=== PATIENT | female | born 1945 | race Caucasian/White ===

== ENCOUNTER → 2019-04-13 16:56 | Outpatient (BNVA) | payer MEDICARE, SELFPAY | PROVIDERS: Family Provider Family Medicine; PCP Family Medicine; Visit Provider Family Medicine | DX: M25.559 Pain in unspecified hip (principal); G89.29 Other chronic pain | CPT/HCPCS: 73502 ==

== ENCOUNTER → 2019-09-10 14:57 | Outpatient (BNVA) | payer MEDICARE, SELFPAY | PROVIDERS: Family Provider Family Medicine; PCP Family Medicine; Visit Provider Nurse Practitioner | DX: N39.0 Urinary tract infection, site not specified (principal) | CPT/HCPCS: 81000 ==

== ENCOUNTER → 2019-09-12 12:00 | Outpatient (BNVA) | payer MEDICARE, SELFPAY | PROVIDERS: Family Provider Family Medicine; PCP Family Medicine; Visit Provider Family Medicine | DX: H83.09 Labyrinthitis, unspecified ear (principal); R11.2 Nausea with vomiting, unspecified | CPT/HCPCS: 80053; 85025 ==

== ENCOUNTER → 2022-04-02 13:36 | Outpatient (BNVA) | payer MEDICARE, SELFPAY | PROVIDERS: Family Provider Family Medicine; Visit Provider Family Medicine | DX: E03.9 Hypothyroidism, unspecified (principal); F32.9 Major depressive disorder, single episode, unspecified; Z76.89 Persons encountering health services in other specified circumstances | CPT/HCPCS: 80053; 80061; 84439; 84443; 85025 ==

== ENCOUNTER → 2022-11-16 07:50 | Outpatient (BNVA) | payer MEDICARE, SELFPAY | PROVIDERS: Family Provider Family Medicine; PCP Family Medicine; Visit Provider Otolaryngology | DX: H91.93 Unspecified hearing loss, bilateral (principal); H93.13 Tinnitus, bilateral | CPT/HCPCS: 99202; 99203 ==

== ENCOUNTER → 2023-04-20 09:29 | Outpatient (BNVA) | payer MEDICARE, SELFPAY | PROVIDERS: Family Provider Family Medicine; PCP Family Medicine; Visit Provider Family Medicine | DX: E03.9 Hypothyroidism, unspecified (principal); M25.559 Pain in unspecified hip; G89.29 Other chronic pain; M16.12 Unilateral primary osteoarthritis, left hip; E55.9 Vitamin D deficiency, unspecified; R52 Pain, unspecified | CPT/HCPCS: 80053; 80061; 82306; 84439; 84443; 85025 ==

== ENCOUNTER 2023-04-22 09:11 | Outpatient (CLI) | payer MEDICARE, SELFPAY ==
--- NOTE | 2023-04-22 09:16 | XR_ITS ---
WS: [id number] XR lumbar spine 1V [id number] REASON FOR EXAM: Pain FINDINGS: Single AP view of the lumbar spine. 5 lumbar vertebrae. Mild rotatory scoliosis convex left. Significant multilevel degenerative spondylosis with disc space narrowing and osteophytosis. Significant degenerative arthropathy in the facet joints L4-S1. Previous laminectomies at L5-S1. IMPRESSION: Postsurgical lumbar spine. Multilevel degenerative spondylosis.
--- NOTE | 2023-04-22 09:16 | XR_ITS ---
WS: [id number] XR hip RT 2-3V wo/w pel* [id number] REASON FOR EXAM: Right hip pain FINDINGS: No fracture or focal bone lesion. Severe joint space narrowing with [id number]. Severe subchondral sclerosis, cystic change, and oste ophytosis of the acetabulum and femoral head. No soft tissue abnormality. IMPRESSION: Severe osteoarthritis of the right hip joint.
== END 2023-04-22 09:12 | disposition home or self-care (01) ==
LOC: RAD 09:13
PROVIDERS: Family Provider Family Medicine; PCP Family Medicine; Visit Provider Family Medicine
DX: M16.0 Bilateral primary osteoarthritis of hip (principal); G89.29 Other chronic pain; M47.817 Spondylosis without myelopathy or radiculopathy, lumbosacral region
CPT/HCPCS: 72020; 73502

== ENCOUNTER → 2023-09-20 08:38 | Outpatient (BNVA) | payer MEDICARE, SELFPAY | PROVIDERS: Family Provider Family Medicine; PCP Family Medicine; Referring Provider Family Medicine; Visit Provider Specialist | DX: M87.151 Osteonecrosis due to drugs, right femur; M16.7 Other unilateral secondary osteoarthritis of hip | CPT/HCPCS: 73502; 99204 ==

== ENCOUNTER 2023-10-05 07:35 | Outpatient (CLI) | payer MEDICARE, SELFPAY ==
--- NOTE | 2023-10-05 08:00 | CT_ITS ---
WS: [id number] NONCONTRAST CT RIGHT HIP TECHNIQUE: Noncontrast CT RIGHT hip with coronal and sagittal reformatted images. CLINICAL INFORMATION: right hip pain COMPARISON: None. DLP: 261.[address] scans at [facility] use at least one of these dose optimization techniques: automated e xposure control; mA and/or kV adjustment per patient size (includes targeted exams where dose is matc hed to clinical indication); or iterative reconstruction. FINDINGS: Osteopenia. Advanced degenerative arthritis RIGHT hip with dyep-ce-gcyz articulation and subchondral cystic change involving the acetabulum and femoral head. This is worse involving the superior lateral femoral head with large areas of subchondral cystic change. Hypertrophic spurring of the acetabulum. Sclerosis in the femoral head. No significant subchondral collapse. Arthritis is significantly progr essed since 2019. Advanced degenerative arthritis of the pubic symphysis. Degenerative arthritis RIGHT SI joint. Vascul ar calcification. Small joint effusion. CT/CT hip RT wo con* [id number] IMPRESSION: 1. Advanced degenerative arthritis RIGHT hip with subchondral cystic change an d sclerosis involving the underlying acetabulum and femoral head. Advanced subc hondral cystic changes with gdpw-dc-ccnl articulation. 2. Osteopenia. 3. No acute fractures. 4. No other acute findings.
== END 2023-10-05 07:36 | disposition home or self-care (01) ==
LOC: RAD 07:36
PROVIDERS: Family Provider Family Medicine; PCP Family Medicine; Visit Provider Specialist
DX: M25.551 Pain in right hip (principal); M16.11 Unilateral primary osteoarthritis, right hip; M85.88 Other specified disorders of bone density and structure, other site
CPT/HCPCS: 73700

== ENCOUNTER → 2023-10-20 07:42 | Outpatient (BNVA) | payer MEDICARE, SELFPAY | PROVIDERS: Family Provider Family Medicine; PCP Family Medicine; Visit Provider Surgery | DX: R19.09 Other intra-abdominal and pelvic swelling, mass and lump (principal) | CPT/HCPCS: 99203; 99214 ==

== ENCOUNTER → 2023-11-03 09:23 | Outpatient (BNVA) | payer MEDICARE, SELFPAY | PROVIDERS: Family Provider Family Medicine; PCP Family Medicine; Visit Provider Specialist | DX: M16.11 Unilateral primary osteoarthritis, right hip (principal); M87.9 Osteonecrosis, unspecified | CPT/HCPCS: 36415; 80053; 81003; 81015; 85025; 99214 ==

== ENCOUNTER → 2023-11-30 09:12 | Outpatient (BNVA) | payer MEDICARE, SELFPAY | PROVIDERS: Family Provider Family Medicine; PCP Family Medicine; Visit Provider Family Medicine | DX: Z01.818 Encounter for other preprocedural examination (principal); I49.8 Other specified cardiac arrhythmias | CPT/HCPCS: 80048; 81003; 85025; 93005 ==

== ENCOUNTER 2023-12-14 15:56 | Observation (INO) | payer MEDICARE, SELFPAY ==
[2023-12-14] VITALS (21 sets, daily range): BP systolic 116–151; BP diastolic 73–117; PULSE 77–106; RESP 12–32; TEMP 36.1–37; O2SAT 94–100; BMI 22.6
--- NOTE | 2023-12-14 12:20 | P.HPUD_ITS ---
Surgery/Procedure H&P Update DATE OF PROCEDURE: December 14, 2023 DATE H&P PERFORMED: 11/30/23 H&P UPDATE INFORMATION: I have reviewed H&P completed within last 30 days, I have examined patient prior to procedure, No changes to prior documentation and H&P is in [facility] EMR on date indicated PRIMARY INDICATION FOR PROCEDURE: Primary osteoarthritis right hip PLANNED PROCEDURE: Operation Date: 12/14/23 13:40 Proposed Procedures p Total Hip Arthroplasty(Right) - Jazz Griffin MD Related Problem List Diagnoses (1) Arthritis of right hip: (2) Osteonecrosis of right hip:
[2023-12-14] MEDS: acetaminophen 1,000 MG/100 ML PIGGYBACK 400 MG IV ×2 (12:35→20:48)
[2023-12-14] MEDS: CELEcoxib 200 mg Capsule 400 MG PO (12:36)
[2023-12-14] MEDS: gabapentin 300 mg Capsule PO (12:37)
[2023-12-14] MEDS: sodium chloride 0.9% 1,000 ML 30 ML IV (12:54)
--- NOTE | 2023-12-14 13:30 | ANES.PREANE2 ---
Pre-Anesthetic Assessment Height/Weight: Height 5 ft 4 in Weight 132 lb Temp Pulse Resp BP Pulse Ox O2 Del Method 98.0 F 89 16 123/81 94 Room Air 12/14/23 12:22 12/14/23 12:22 12/14/23 12:22 12/14/23 12:22 12/14/23 12:22 12/14/23 12:51 Preop Diagnosis: Arthritis Operation Date: 12/14/23 13:40 Proposed Procedures p Total Hip Arthroplasty(Right) - Jazz Griffin MD Was Beta Perez taken within 24 hours: N/A Was Clonidine taken within 24 hours: N/A Last intake: Intake Last Liquid Date 12/13/23 Last Liquid Time 22:00 Last Solid Date 12/13/23 Last Solid Time 22:00 Social No alcohol and No tobacco Exam alert, oriented x 3, clear to auscultation bilaterally and regular rate & rhythm Airway Submandibular: within normal limits Cervical ROM: within normal limits Mallampati: Class II Dentition: partials, full and other (Few missing teeth) Anesthetic Plan ASA status: 2 Anesthesia: General Other: No prior issues with anesthesia NPO since midnight Hypothyroidism on Synthroid Scoliosis noted Denies any pulmonary or cardiac issues Labs reviewed 11/30/2023 and acceptable for surgery METs greater than 4 Plan for general anesthesia Medications/Allergies Home Medications Medication Instructions Recorded Confirmed Last Taken Type latanoprost 0.005 % eye drops 1 drop ophthalmic (eye) QDAY 04/13/19 12/13/23 12/13/23 History levothyroxine 75 mcg tablet See Rx Instructions .Route 10/08/23 12/13/23 12/14/23 Rx .COMPLEX #30 tabs tramadol 100 mg tablet 100 mg PO BID PRN pain #80 tabs 11/03/23 12/13/23 12/13/23 Rx trazodone 50 mg tablet See Rx Instructions .Route 11/03/23 12/13/23 Unknown Rx .COMPLEX #30 tabs fluoxetine 40 mg capsule (Prozac) 40 mg PO DAILY #90 caps 12/01/23 12/13/23 12/14/23 Rx Allergies Allergy/AdvReac Type Severity Reaction Status Date / Time No Known Allergies Allergy Verified 12/13/23 11:54 Current Medications Generic Name Dose Route Start Last Admin Trade Name Freq PRN Reason Stop Dose Admin Sodium Chloride 1,000 mls @ 30 mls/hr 12/14/23 12:15 12/14/23 12:54 Sodium Chloride 0.9% IV 12/15/23 12:14 30 mls/hr .Q24H [place] Administration PFSH Anesthesia Medical History Hypothyroidism (acquired) Surgical History History of foot surgery History of hysterectomy History of appendectomy Family History Father Cancer bone cancer and melanoma Brother Cancer pancreatic Social History Smoking and tobacco/nicotine status: never used tobacco/nicotine Alcohol intake: never Female Reproductive History Spontaneous abortions: No Data Anesthesia Cardiac Studies: No Data to Display
[2023-12-14] MEDS: ceFAZolin 2,000 mg SDV 2000 MG IVP ×2 (13:35→20:39)
[2023-12-14] MEDS: tranexamic acid 1,000 mg/10mL SDV 1000 MG IV (13:56)
[2023-12-14] MEDS: vancomycin 1,000 MG SDV 1000 MG XX (14:27)
[2023-12-14] MEDS: ceFAZolin 1,000 mg SDV 1000 MG IRRIGATION (14:27)
--- NOTE | 2023-12-14 16:24 | P.OP_ITS ---
Operative Report Date of procedure: December 14, 2023 Pre-op diagnosis: Primary osteoarthritis right hip with osteonecrosis Post-op diagnosis: Primary osteoarthritis right hip with osteonecrosis Post-op findings: Femoral head collapse with osteonecrosis and severe degenerative osteoarthritis. Procedure done: Right total hip arthroplasty Implants: The [place] hip system utilizing the Insignia hip stem standard offset size 6, with a size 54 mm by E alpha code Trident TriTanium solid back acetabular shell, a 42 mm E MDM cementless liner, and a Biolox delta ceramic V40 femoral head size 28 mm outer diameter with +0 mm neck length Specimens removed/disposition: Femoral head, disposed of Pathology: None Surgeon: Jazz Griffin MD Structural Analysis Engineer: Nu Zepeda Structural Analysis Engineer: Whose services were required for positioning, retraction, closure, and overall completion of the surgical procedure Anesthesia: General (Per ET tube, ASA 2) Estimated blood loss (mL): 150 IV fluids (mL): 1,300 Urine output (mL): 250 Complications: None Findings: Severe degenerative osteoarthritis and femoral head collapse with cystic changes within the acetabulum Condition: stable Disposition: PACU (Then to floor for postoperative rehabilitation and pain management) Brief History: This 78-year-old woman presented to the clinic complaining of severe right hip pain. X-rays demonstrated findings consistent with avascular necrosis. The patient had severe limitations in activities of daily living as well as range of motion which was very very limited. After discussion with the patient, she w ished to proceed with operative intervention in the form of total hip arthroplasty. She did have preoperative consultation with Dr. Ashton secondary to an abdominal wall issue remotely. She was cleared for surgical intervention and evaluated preoperatively by Dr. Gonsales as well. While in clinic, questions were answered and consents were signed. She was seen again preoperatively. Procedure: Patient was brought to the operating theater. She was transferred to the operating room table and subsequently administered a general anesthetic i ntubated, ASA 2. Following administration of adequate anesthesia, the patient was placed in full lateral position and held in position with a pegboard. Also, the patient had minimal movement in her right lower extremity preoperatively. The patient's right lower extremity was then prepped and draped in usual fashion utilizing DuraPrep. It was draped free. Following prepping and draping a surgi simran pause was performed. At the time of surgical pause, we identified the site and side of surgery. We also identified the patient and preoperative surgical markings. Confirmation was made of equipment availability. Additionally, the patient's preoperative IV antibiotic, Ancef 2 g, was confirmed as being given in a timely fashion and being the appropriate antibiotic. Following the surgical pause, an incision was made centering over the patient's greater trochanter continuing proximally and distally as necessary to allow access to the hip joint. Dissection continued through skin and soft tissues using a scalpel, and hemostasis was obtained using electrocautery. The tensor fascia tanvir was identified and incised longitudinally. Sciatic nerve was identified and protected throughout the surgical procedure. A Charnley U retractor was placed after the tensor fascia tanvir had been incised longitudinally, and the sciatic nerve had been identified. The hip was internally rotated, and the piriformis muscle was identified and tagged. Piriformis muscle along with the remaining short external rotators were then incised from the posterior aspect of the hip joint. These were retracted po steriorly. The capsule was entered in a T-type fashion with the edges being tagged, and subsequently the hip was dislocated. Following hip dislocation, a femoral neck osteotomy was accomplished in the appropriate position. We then evaluated the acetabulum. The femur was retracted anteriorly. Soft tissues were retracted and the labrum was removed. We then began reaming. Once the femoral head was removed, there was no evidence of infection, but there was significant loss of cartilage over the head and over the acetabulum with femoral head collapse. We reamed the acetabulum to a size 53 to allow for a size 54 mm TriTanium solid back acetabular shell component. The acetabulum was impacted into position. The shell was impacted into position. Subsequently, the MDM liner, cementless was impacted into place. This was a size 42 mm with the alpha code to match the size 54 TriTanium shell. Once this was impacted into position, edges were checked to ensure there was no soft tissue impingement. The area was irrigated and attention was directed to the proximal femur. The proximal femur was lifted out of the wound. A canal finder was passed after the box chisel. The reamer was used to lateralize. We then began broaching. We broached sequentially and had excellent fit and fill with the size 6 standard offset Insignia hip stem. A trial reduction was accomplished with a +0 mm femoral head inside a trial MDM insert size 28 mm inner diameter by 42E. Leg lengths were evaluated and felt to be restored. The patient was stable to external rotation, toe hang, and at 90 degrees of flexion with 80 degrees of internal rotation and 30 degrees of adduction. The stability was felt to be excellent. Therefore, trial components were removed after the hip was dislocated. The size 6 Insignia hip stem, [place], with standard offset was impacted into position. Once this was in place, the MDM liner size 42 mm by E alpha code was assembled with the 28 mm +0 mm Biolox femoral head. This was then placed onto the hip stem and impacted into position. Hip was reduced. Again the hip was placed through range of motion and the above stabilities were obtained. The wound was copiously irrigated with 20 mL of Betadine and 500 mL of normal saline mixed together. Subsequently, we suctioned this out and irrigated the wound copiously with lactated Ringer's. Being satisfied with the prosthesis, attention was directed to closure. Closure was accomplished with 0 Vicryl in the capsular tissues. Piriformis was reattached with 0 Vicryl as well. Tensor fascia tanvir was closed with 0 Vicryl in an interrupted fashion. The subcutaneous tissues were closed with a combination of 0 Vicryl and 2-0 STRATAFIX in a running fashion. Vancomycin powder and a Gelfoam thrombin mixture was placed into the wound as well. The skin was closed with a running 3-0 STRATAFIX followed by Dermabond Prineo and OpSite. The patient was placed in an abduction pillow. She was returned the Recovery Room in a satisfactory condition and will be discharged to the floor for postoperative rehabilitation and pain management. There were no complications. Related Problem List Diagnoses (1) Arthritis of right hip: (2) Osteonecrosis of right hip:
[2023-12-14] MEDS: fentaNYL 50 mcg/mL INJ 2mL IVP ×2 (16:30→16:53)
--- NOTE | 2023-12-14 16:36 | XRR_ITS ---
PROCEDURE INFORMATION: Exam: XR Pelvis Exam date and time: 12/14/2023 4:46 PM Age: 78 years old Clinical indication: Device placement; Other: Status post right total hip arthroplasty; Prior surgery; Surgery date: Post-operative (0-2 days); Additional info: Status post right total hip arthroplasty, low ap pelvis TECHNIQUE: Imaging protocol: Radiologic exam of the pelvis. Views: 1 or 2 view. COMPARISON: CR XR hip RT 2-3V wo/w pel* [id number] 09/20/2023 8:40 AM FINDINGS: Tubes, catheters and devices: Surgical clips overlie the pelvis bilaterally. Bones/joints: Interval total right hip arthroplasty. Hardware appears intact without complication. Similar mild degenerative changes of the left hip. No definite fracture visualized. Soft tissues: Unremarkable. XR/XR pelvis 1-2V* [id number] IMPRESSION: Right total hip arthroplasty without apparent complication.
[2023-12-14] MEDS: meperidine 50 mg/mL INJ 12.5 MG IVP (17:00)
--- NOTE | 2023-12-14 17:06 | PC.NURSE ---
1706 - noted time in phase 1 vital signs that blood pressure was not taking - anesthesia at pts side during entirity of this event - pt shivering - anesthesia assessed pt - no change in condition - proceed with post op anesthesia orderes - Dr Griffin in PACU as well
[2023-12-14] MEDS: calcium carbonate 500 mg Chew Tablet 1000 MG PO (17:56)
[2023-12-14] MEDS: sennosides-docusate Tablet 2 TAB PO (17:56)
[2023-12-14] MEDS: iron polysaccharide complex 150 mg Capsule PO (17:56)
[2023-12-14] MEDS: oxyCODONE 5 mg IR Tab/Cap PO ×2 (17:57→23:43)
[2023-12-14] MEDS: mupirocin oint 22 gm 1 APPLIC NASAL (17:57)
[2023-12-14] MEDS: chlorhexidine gluconate 0.12% Btl 473 mL 30 ML MUCOUS MEM ×2 (17:57→20:39)
[2023-12-15 00:32] VITALS: BP 113/80; PULSE 81; RESP 17; TEMP 36.8; O2SAT 97
[2023-12-15] MEDS: acetaminophen 1,000 MG/100 ML PIGGYBACK 400 MG IV ×2 (04:19→11:08)
[2023-12-15] MEDS: ceFAZolin 2,000 mg SDV 2000 MG IVP ×2 (04:47→12:31)
[2023-12-15] MEDS: levothyroxine 75 mcg Tablet PO (05:33)
[2023-12-15 06:25] LABS: Basophils % 0.1 %; Hematocrit 34.4 % (36-47); Lymphocytes # 0.8 10^3/uL (0.8-4.8); Lymphocytes % 5.7 %; Mean Corpuscular HGB Conc 32.3 g/dL (30-55); Mean Corpuscular Volume 96.1 fl (85-98); Mean Platelet Volume 9.6 fL (7.4-10.4); Monocytes % 6.5 %; Neutrophils % 87.2 %; Nucleated Red Blood Cells % 0 %; Platelet Count 239 10^3/cmm (157-399); Red Blood Count 3.58 10^6/uL (3.85-5.65); Red Cell Distribution Width 13.9 % (12.1-15.1); White Blood Count 14.58 10^3/uL (3.29-11.43)
[2023-12-15 06:43] VITALS: RESP 20
[2023-12-15] MEDS: oxyCODONE 5 mg IR Tab/Cap PO ×2 (06:43→10:48)
[2023-12-15 06:45] LABS: Anion Gap 13.2 (5-19); Blood Urea Nitrogen 11 mg/dL (8-23); Calcium 8.3 mg/dL (8.5-10.5); Carbon Dioxide 26 mmol/L (22-29); Chloride 103 mmol/L (98-107); Glucose 122 mg/dL (65-115); Osmolality Calculated 287 mOsm/kg (285-295); Potassium 4.2 mmol/L (3.5-5.1); Sodium 138 mmol/L (136-145)
[2023-12-15] MEDS: cholecalciferol (vitamin D3) 1,000 unit Tablet 1000 UNIT PO (07:29)
[2023-12-15] MEDS: multivitamin therapeutic Tablet 1 TAB PO (07:30)
[2023-12-15] MEDS: sennosides-docusate Tablet 2 TAB PO (07:30)
[2023-12-15] MEDS: CELEcoxib 200 mg Capsule PO (07:30)
[2023-12-15] MEDS: fluoxetine 20 mg Capsule 40 MG PO (07:30)
[2023-12-15] MEDS: aspirin 325 mg EC Tablet PO (07:30)
[2023-12-15] MEDS: calcium carbonate 500 mg Chew Tablet 1000 MG PO (07:30)
[2023-12-15] MEDS: iron polysaccharide complex 150 mg Capsule PO (07:31)
[2023-12-15] MEDS: chlorhexidine gluconate 0.12% Btl 473 mL 30 ML MUCOUS MEM (07:31)
[2023-12-15] MEDS: mupirocin oint 22 gm 1 APPLIC NASAL (07:32)
[2023-12-15 07:33] VITALS: BP 96/52; PULSE 76; RESP 18; TEMP 37.2; O2SAT 94
--- NOTE | 2023-12-15 09:26 | PC.CHAP ---
Pastoral Care Encounter/Spiritual Assessment Type of Contact [] Declined factory manager visit [] Patient/Family/Request visit [] Outpatient visit [] Follow-up visit [] Physician referral [] Code/Alert [x] Routine visit [] Staff referral [] Actively dying [] Patient sleeping [] Family support [] [] Out of room [] Palliative care [] [] Receiving care in room [] Pre-surgical visit [] Trauma [] Long length of stay [] ICU visit [] Other: Relational/Emotional Strength [x] Patient feels connected with others/family/visitors/staff [] Distress [] Loneliness/isolation [] Abandonment Spirituality of Patient [x] Person of Padma [] Attends Latter-Day of their Padma [x] Believes in Prayer [] Reads Bible or Jehovah'S Witness materials [] There are Spiritual issues to be addressed Director Of Trauma Interventions [x] Prayer [x] Active listening [] Non-anxious presence [x] Spiritual/emotional support [] Crisis/trauma care [] Spiritual counseling [] Bereavement support [] Provided bereavement packet [] Provided Bible/devotional materials [] Provided toy/stuffed animal, coloring book to patient or family member [] Provided Communion [] Anointing/[place] [] Salvation [x] Completed spiritual assessment [] Other: Impact on Illness or Injury [] Angry [] Fearful [] Anxious [] Often cries [] Exhaustion [] Unable to work [] Unable to attend episcopalian [] Unable to walk/stand [] Unable to read [] Unable to drive [] Unable to eat/drink [] Unable to sleep [] Unable to be with family [] Patient intubated [] Other: Summary Time spent with patient 5 min
[2023-12-15 10:48] VITALS: RESP 17
--- NOTE | 2023-12-15 11:01 | P.DS_ITS ---
Discharge Providers Date of Admission: 12/14/23 15:56 Date of Discharge: December 15, 2023 Attending Provider at Admission: Jazz Griffin MD Attending Provider at Discharge: Jazz Griffin MD Primary Care Provider: Avinash Lees DO Diagnoses at Discharge Discharge Diagnosis (1) Arthritis of right hip: Status: Acute (2) Osteonecrosis of right hip: Status: Acute (3) S/P total right hip arthroplasty: Status: Acute Permanent problem details: Date of procedure: December 14, 2023 Diagnosis: Primary osteoarthritis right hip with osteonecrosis Procedure done: Right total hip arthroplasty Implants: The [place] hip system utilizing the Insignia hip stem standard offset size 6, with a size 54 mm by E alpha code Trident TriTanium solid back acetabular shell, a 42 mm E MDM cementless liner, and a Biolox delta ceramic V40 femoral head size 28 mm outer diameter with +0 mm neck length Reason for Visit Reason for Visit: M87, M16.11 Brief History: This 78-year-old woman presented to the clinic complaining of severe right hip pain. X-rays demonstrated findings consistent with avascular necrosis. The patient had severe limitations in activities of daily living as well as range of motion which was very very limited. After discussion with the patient, she wished to proceed with operative intervention in the form of total hip arthroplasty. She did have preoperative consultation with Dr. Ashton secondary to an abdominal wall issue remotely. She was cleared for surgical intervention and evaluated preoperatively by Dr. Gonsales as well. While in clinic, questions were answered and consents were signed. She was seen again preoperatively. Hospital Course Hospital Course Patient was admitted following right total hip arthroplasty. She worked with physical therapy on the first postoperative day and did well. She was instructe d in posterior hip precautions. Dressing was dry. There was minimal to no swelling and no ecchymosis. The patient was felt safe for discharge to home. Discussion was undertaken with physical therapy. Therefore, the patient will be discharged home with no evidence of DVT or other complication. Physical Exam Const: COMMON NORMALS: no acute distress, average body habitus, patient oriented x3 and alert GENERAL APPEARANCE: cooperative and comfortable ORIENTATION/CONSCIOUSNESS: Yes awake HENMT: COMMON NORMALS: normocephalic and atraumatic HEAD & SCALP: n ormocephalic and atraumatic Eye: GENERAL EYE: appearance normal, both eyes and all related structures Chest: COMMONS NORMALS: normal inspection of the chest Resp: COMMON NORMALS: normal respiratory effort EFFORT & INSPECTION: Yes able to speak in complete sentences and Yes symmetric chest movement Extremity: RIGHT LOWER EXTREMITY: Yes hip joint (Dressing dry and intact) Right hip: Yes inspection (No significant swelling), Yes ROM (Not evaluated) and Yes neurovascular exam (Intact distally with no evidence of DVT) Neuro: COMMON NORMALS: patient oriented x3 SENSORIUM/ORIENTATION: Yes alert Psych: COMMON NORMALS: mental status grossly normal APPEARANCE: Yes grossly normal ATTITUDE: Yes calm and Yes engaged ATTENTION/CONCENTRATION: Yes attention grossly intact Skin: COMMON NORMALS: no rashes or lesions noted GENERAL SKIN EXAM: no rashes or lesions noted Urinary Catheter Management: Andre: Cath Placed During This Visit: yes, but has since been removed by the nurse Reason for Continuing Indwelling Catheter: Perioperative Use in Selected Surgeries Urinary Catheter Date of Insertion: 12/14/23 Date Urinary Catheter Removed: 12/15/23 Time Urinary Catheter Discontinued: 06:15 Discharge Data Studies Completed and Pending Completed Studies During Hospitalization Category Date Time Status XR pelvis 1-2V* [id number] Routine Exams 12/14/23 16:36 Completed Radiology Impressions Pelvis X-Ray 12/14/23 16:36 IMPRESSION: Right total hip arthroplasty without apparent complication. Laboratory Results WBC 14.58 10^3/uL (3.29-11.43) H 12/15/23 05:32 RBC 3.58 10^6/uL (3.85-5.65) L 12/15/23 05:32 Hgb 11.10 g/dL (11.27-16.99) L 12/15/23 05:32 Hct 34.4 % (36-47) L 12/15/23 05:32 MCV 96.1 fl (85-98) 12/15/23 05:32 MCH 31.0 pg (27-33) 12/15/23 05:32 MCHC 32.3 g/dL (30-55) 12/15/23 05:32 RDW 13.9 % (12.1-15.1) 12/15/23 05:32 Plt Count 239 10^3/cmm (157-399) 12/15/23 05:32 MPV 9.6 fL (7.4-10.4) 12/15/23 05:32 Neut % (Auto) 87.2 % 12/15/23 05:32 Lymph % (Auto) 5.7 % 12/15/23 05:32 Churchill % (Auto) 6.5 % 12/15/23 05:32 Eos % (Auto) 0.0 % 12/15/23 05:32 Baso % (Auto) 0.1 % 12/15/23 05:32 Neut # (Auto) 12.70 10^3/uL (1.8-7.7) H 12/15/23 05:32 Lymph # (Auto) 0.8 10^3/uL (0.8-4.8) 12/15/23 05:32 Churchill # (Auto) 1.0 10^3/uL (0.2-0.9) H 12/15/23 05:32 Eos # (Auto) 0.0 10^3/uL (0.0-0.8) 12/15/23 05:32 Baso # (Auto) 0.0 10^3/uL (0.0-0.1) 12/15/23 05:32 Nucleated RBC % (auto) 0 % 12/15/23 05:32 Nucleated RBCs # 0.0 /100WBC 12/15/23 05:32 Sodium 138 mmol/L (136-145) 12/15/23 05:32 Potassium 4.2 mmol/L (3.5-5.1) 12/15/23 05:32 Chloride 103 mmol/L (98-107) 12/15/23 05:32 Carbon Dioxide 26 mmol/L (22-29) 12/15/23 05:32 Anion Gap 13.2 (5-19) 12/15/23 05:32 BUN 11 mg/dL (8-23) 12/15/23 05:32 Creatinine 0.8 mg/dL (0.5-0.9) 12/15/23 05:32 GFR Calculation Not Reportable 12/15/23 05:32 Glucose 122 mg/dL (65-115) H 12/15/23 05:32 Calculated Osmolality 287 mOsm/kg (285-295) 12/15/23 05:32 Calcium 8.3 mg/dL (8.5-10.5) L 12/15/23 05:32 Vitals Last Vital Signs Temp 99.0 F 12/15/23 07:33 Pulse 76 12/15/23 07:33 Resp 17 12/15/23 10:48 BP 96/52 12/15/23 07:33 Pulse Ox 94 12/15/23 07:33 O2 Del Method Room Air 12/15/23 07:33 O2 Flow Rate 3 12/14/23 16:48 Discharge Plan Discharge Patient Disposition: Home Health Service Condition: Stable Prescriptions: New acetaminophen 500 mg Tablet 1,000 mg PO Q8H 15 Days Qty: 90 0RF celecoxib 200 mg Capsule 200 mg PO DAILY 30 Days Qty: 30 0RF aspirin 325 mg Tablet,Delayed Release (Dr/Ec) 325 mg PO DAILY 30 Days Qty: 30 0RF oxycodone 5 mg Tablet 5 - 10 mg PO Q4H PRN (Reason: Moderate To Severe Pain) 7 Days Qty: 40 0RF Continued latanoprost 0.005 % drops 1 drop ophthalmic (eye) QDAY tramadol 100 mg tablet 100 mg PO BID PRN (Reason: pain) Qty: 80 0RF levothyroxine 75 mcg tablet See Rx Instructions .ROUTE .COMPLEX Qty: 30 0RF Dose Instruction: Take 1 tablet by mouth once daily Rx Instructions: Take 1 tablet by mouth once daily trazodone 50 mg tablet See Rx Instructions .ROUTE .COMPLEX Qty: 30 0RF Dose Instruction: Take 1 tablet by mouth once daily Rx Instructions: Take 1 tablet by mouth once daily fluoxetine [Prozac] 40 mg capsule 40 mg PO DAILY Qty: 90 1RF Discharge Orders: Discharge Order (Routine); Ordered 12/15/23 Ordered By: Jazz Griffin Other Ambulatory Orders: DME: Walker (Order) Location: None Selected Ordered By: Jazz Griffin Referrals: Avinash Lees DO [Primary Care Provider] - (We have notified your physician's clinic of the need for a follow-up appointment to be scheduled. If you have not heard from them within the next 2 business days, please call them directly. ) Jazz Griffin MD [Physician] - 12/29/23 11:00 am Discharge Diet: Advance as tolerated and Usual diet Discharge Activity: Limit activity as instructed and As per PT/OT instructions Patient Instructions: Oxycodone, Rapid Release (By mouth), Celecoxib (By mouth), Acute Wound Care (DC), Total Hip Replacement (DC), Joint Replacement Stoplight, Opioid Safety, Post Anesthesia Care Activity Restrictions/Additional Instructions: Posterior hip precautions. Ice to right hip. Gait training and ambulation per physical therapy. You may shower, but do not soak your hip. Do not sit in the bathtub or get into a pool or mckenzie or other standing water. Discharge Attestations Time Spent in Discharge Care*: greater than 30 min Specific Discharge Activities: educating patient, documenting/other paperwork and evaluating patient/reviewing data Quality Metrics Clinical Quality Measures [ No reported AMI, CVA or VTE this stay] Coding Level of Care Code Acute Code for [facility] Diagnoses Arthritis of right hip M16.11 Osteonecrosis of right hip M87.9 S/P total right hip arthroplasty Z96.641
[2023-12-15 11:21] VITALS: BP 109/64; PULSE 64; RESP 18; TEMP 36.7; O2SAT 97
[2023-12-15 13:31] VITALS: BP 109/64; PULSE 64; RESP 18; TEMP 36.7; O2SAT 97
== END 2023-12-15 13:30 | disposition home health service (06) ==
LOC: MEDSURG 15:57
PROVIDERS: Admitting Provider Specialist; PCP Family Medicine; Visit Provider Specialist
PROC: (CPT 27130; principal; 2023-12-14 13:40)
DX: M16.11 Unilateral primary osteoarthritis, right hip (principal); M87.821 Other osteonecrosis, right humerus; E03.9 Hypothyroidism, unspecified
CPT/HCPCS: 27130; 36415; 51702; 72170; 80048; 85025; 97110; 97116; 97161; 97165; C1776; G0378; J0131; J0690; J1100; J2175; J2405; J2704; J3010; J3370; J3490; J7030

== ENCOUNTER → 2023-12-29 10:50 | Outpatient (BNVA) | payer MEDICARE, SELFPAY | PROVIDERS: PCP Family Medicine; Visit Provider Specialist | DX: Z96.641 Presence of right artificial hip joint (principal); Z48.89 Encounter for other specified surgical aftercare | CPT/HCPCS: 73502; 99024 ==

== ENCOUNTER → 2024-02-09 10:12 | Outpatient (BNVA) | payer MEDICARE, SELFPAY | PROVIDERS: PCP Family Medicine; Visit Provider Specialist | DX: Z96.641 Presence of right artificial hip joint (principal); Z48.89 Encounter for other specified surgical aftercare | CPT/HCPCS: 73502; 99024 ==

== ENCOUNTER → 2024-05-29 13:41 | Outpatient (BNVA) | payer MEDICARE, SELFPAY | PROVIDERS: PCP Family Medicine; Visit Provider Family Medicine | DX: Z00.00 Encounter for general adult medical examination without abnormal findings (principal); E03.9 Hypothyroidism, unspecified; F32.9 Major depressive disorder, single episode, unspecified; Z76.89 Persons encountering health services in other specified circumstances; D64.9 Anemia, unspecified; Z13.1 Encounter for screening for diabetes mellitus | CPT/HCPCS: 80053; 84443; 85025 ==